=== PATIENT | female | born 1995 | race American Indian/Alaskan Native ===

== ENCOUNTER 2019-04-19 14:42 | Outpatient (CLI) | payer OTHER ==
[2019-04-19 16:55] LABS: Bacteria,Urine 1+ /HPF (Negative); Bilirubin,Urine NEG (Negative); Blood,Urine NEG (Negative); Color,Urine Yellow (Yellow); Hyaline Casts,Urine 2 /LPF; Mucus,Urine 3+ /HPF; Urobilinogen,Urine < 2.0 mg/dL (<2.0)
[2019-04-19 19:20] VITALS: BP 117/75
--- NOTE | 2019-04-20 12:17 | Ultrasound Report ---
Limited OB Ultrasound HISTORY: labor. TECHNIQUE: Grayscale and color Doppler imaging performed. COMPARISON: None FINDINGS: There is a single viable intrauterine gestation which is cephalic in presentation. CINTHIA 15 c m. Heart rate is 138 bpm. No acute placental abnormality identified and the placenta is positioned an teriorly. IMPRESSION: Unremarkable limited examination. Signer Name: Maxime Hernandez MD Signed: 04/20/2019 12:13 PM Workstation Name: [id number]
--- NOTE | 2019-04-21 16:37 | Ultrasound Report ---
Biophysical profile INDICATION: with vaginal bleeding COMPARISON: None FINDINGS: Study dated 04/19/2019 is presented for interpretation on 04/21/2019 breathing movement: 2/2 movement: 2/2 posture and tone: 2/2 Qualitative amniotic fluid volume: 2/2 IMPRESSION: Total score for biophysical profile is 8/8. heart rate is 138 bpm Signer Name: Jose Armando MD Signed: 04/21/2019 4:32 PM Workstation Name: [id number]
== END 2019-04-19 20:05 | disposition home or self-care (01) ==
LOC: TRG 14:42
PROVIDERS: ATTEND Obstetrics & Gynecology
DX: O26.852 Spotting complicating pregnancy, second trimester (principal); Z3A.27 27 weeks gestation of pregnancy
CPT/HCPCS: 76815; 76819; 81001

== ENCOUNTER 2019-07-10 05:46 | Inpatient (IN) | payer OTHER ==
[2019-07-10] MEDS ORDERED: LACTATED RINGERS 1,000 ML ONE (08:49)
[2019-07-10] MEDS ORDERED: FAMOTIDINE 20 MG/2 ML INJ IV ONE (08:59)
[2019-07-10] MEDS ORDERED: METOCLOPRAMIDE 10 MG/2 ML INJ IV ONE (08:59)
[2019-07-10] MEDS ORDERED: BICITRA ORAL LIQD 30ML PO ONE (08:59)
[2019-07-10] MEDS: LACTATED RINGERS 1,000 ML IV SCH ×2 (09:00→09:51)
[2019-07-10] MEDS ORDERED: OXYTOCIN 20 UNIT/1000ML DRIP 20 UNITS/1,000 ML BAG IV SCH ×2 (09:00→13:00)
[2019-07-10] MEDS ORDERED: ceFAZolin/Water 2 GM/20 ML 2 GM/20 ML SYRINGE IV NR (09:00)
[2019-07-10] MEDS ORDERED: PROMETHAZINE 25 MG TAB PO PRN (09:19)
[2019-07-10] MEDS ORDERED: NALOXONE 0.4 MG/1 ML INJ IV PRN ×2 (09:19→12:24)
[2019-07-10] MEDS ORDERED: ONDANSETRON 4 MG/2 ML INJ IV PRN ×2 (09:19→12:29)
[2019-07-10] MEDS ORDERED: HYDROmorphone 1 MG/1 ML INJ IV PRN ×2 (09:19)
[2019-07-10] MEDS ORDERED: PROMETHAZINE 25 MG RECT SUPP PR PRN (09:19)
--- NOTE | 2019-07-10 09:19 | Anesthesia Consultation ---
Anesthesia Consult and Med Hx Date of service: 07/10/19 - Airway Anesthetic Teeth Evaluation: Good ROM Head & Neck: Adequate Mental/Hyoid Distance: Adequate Mallampati Class: Class II Intubation Access Assessment: Good - Pulmonary Exam CTA: Yes - Cardiac Exam Cardiac Exam: RRR - Pre-Operative Health Status ASA Pre-Surgery Classification: ASA1 Proposed Anesthetic Plan: Spinal - Pulmonary Hx Asthma: No - Cardiovascular System Hx Hypertension: No - Central Nervous System Hx Seizures: No Hx Psychiatric Problems: No - Endocrine Hx Renal Disease: No Hx Hypothyroidism: No Hx Hyperthyroidism: No - Hematic Hx Anemia: No Hx Sickle Cell Disease: No - Other Systems Hx Alcohol Use: No
--- NOTE | 2019-07-10 09:19 | Anesthesia Day of Surgery ---
Anesthesia Day of Surgery - Day of Surgery Patient Examined: Yes Patient H&P Reviewed: Yes Patient is NPO: Yes
--- NOTE | 2019-07-10 09:25 | History and Physical Report ---
History of Present Illness Date of examination: 07/10/19 Date of admission: 07/10/19 05:46 History of present illness: PT is a at 39.1 weeks with h/o 2 prior LTCS who is here for repeat LTCS. PT also desires sterilization. Uncomplicated except for noncompliance. 3 OB visits during the . Past History Past Medical History: no pertinent history Past Surgical History: section (x 2) Social history: no significant social history - Obstetrical History Expected Date of Delivery: 07/16/19 Actual Gestation: 39 Week(s) 1 Day(s) : 3 Para: 2 Hx # Term Pregnancies: 2 Number of Living Children: 2 Medications and Allergies Allergies Allergy/AdvReac Type Severity Reaction Status Date / Time No Known Allergies Allergy Unverified 04/19/19 16:23 Home Medications Medication Instructions Recorded Confirmed Last Taken Type Multivitamin Tablet 1 tab PO DAILY 07/10/19 07/10/19 07/09/19 10:00 History Active Meds: Active Medications Oxytocin/Sodium Chloride (Pitocin/Ns 20 Unit/1000ml Drip) 20 units in 1,000 mls @ 0 mls/hr IV TITR PAVAN Lactated Ringer's (Lactated Ringers) 1,000 mls @ 2,250 mls/hr IV PREOP PAVAN Stop: 07/11/19 09:27 Cefazolin Sodium (Ancef/Sterile Water 2 Gm/20 Ml) 2 gm in 20 mls @ 80 mls/hr IV PREOP NR; Protocol Stop: 07/10/19 23:00 Review of Systems All systems: negative - Vital Signs Vital signs: Vital Signs Pulse BP 70 126/78 07/10/19 09:12 07/10/19 09:12 Temp Pulse Resp BP Pulse Ox 70 126/78 07/10/19 09:12 07/10/19 09:12 - Physical Exam Abdomen: Positive: normal appearance, soft. Negative: tenderness Results All other labs normal. Assessment and Plan - Patient Problems (1) Hx of section Current Visit: Yes Status: Acute Plan to address problem: PT fully consented for her RLTCS/BTL. All questions answered. Risks, benefits, alternatives d/w pt. PT aware of the approximately 09/999 risk of BTL failure. Risk of regret evy with her age also d/w pt and she understands. Other BC options d/w pt and she still opts to proceed with BTL.
[2019-07-10 09:39] LABS: Basophils % (Auto) 0.2 % (0.0-1.8); Eosinophils # (Auto) 0.1 K/mm3 (0.0-0.4); Eosinophils % (Auto) 0.7 % (0.0-4.3); Hematocrit 32.9 % (30.3-42.9); Lymphocytes % (Auto) 27.8 % (13.4-35.0); Mean Corpuscular HGB Conc 33 % (30-34); Mean Corpuscular Volume 93 fl (79-97); Monocytes # (Auto) 0.7 K/mm3 (0.0-0.8); Monocytes % (Auto) 6.1 % (0.0-7.3); Platelet Count 249 K/mm3 (140-440); Red Blood Count 3.54 M/mm3 (3.65-5.03); Red Cell Distribution Width 12.9 % (13.2-15.2)
[2019-07-10] MEDS ORDERED: fentaNYL-BUPIV 2 MCG/ML-0.125% 200 MCG/100 ML BAG EPIDURAL SCH (10:00)
[2019-07-10] MEDS ORDERED: DEXMEDETOMIDINE 200 MCG/2 ML VIAL IV ONE (10:02)
[2019-07-10] MEDS ORDERED: ONDANSETRON 4 MG/2 ML INJ ONE (10:02)
[2019-07-10] MEDS ORDERED: SODIUM CHLORIDE 0.9% IRR 1,500 ML BOTTLE IR ONE (10:35)
[2019-07-10] MEDS ORDERED: WATER FOR IRRIG STERILE 1,500 ML BOTTLE IR ONE (10:35)
[2019-07-10] MEDS ORDERED: PHENYLEPHRINE/NS 1,000 MCG/10 ML SYRINGE (OR USE) IV ONE (10:37)
[2019-07-10] MEDS ORDERED: KETOROLAC 30 MG/1 ML INJ ONE (11:13)
[2019-07-10] MEDS ORDERED: HYDROmorphone 1 MG/1 ML INJ ONE (11:13)
[2019-07-10] MEDS ORDERED: fentaNYL 100 MCG/2 ML INJ ONE (11:29)
[2019-07-10] MEDS ORDERED: LANOLIN/ZINC/DIMETHICONE (LANSINOH) 7 GM TP PRN (12:24)
[2019-07-10] MEDS ORDERED: WITCH HAZEL/ GLYCERIN PAD TP PRN (12:24)
[2019-07-10] MEDS ORDERED: SENNOSIDES 8.6 MG TAB PO PRN (12:29)
[2019-07-10] MEDS ORDERED: SIMETHICONE 80 MG CHEW TAB PO PRN (12:29)
[2019-07-10] MEDS ORDERED: HYDROCORTISONE 25 MG RECTAL SUPP PR PRN (12:29)
[2019-07-10] MEDS ORDERED: MAGNESIUM HYDROXIDE (MOM) ORAL LIQD UDC PO PRN (12:29)
--- NOTE | 2019-07-10 12:42 | Procedure Note ---
OB Delivery Note - Section Preop diagnosis: repeat , desires sterilization Postop diagnosis: same section procedure: repeat low transverse, bilateral tubal ligation Disposition: PACU Complications: none Narrative: This patient is a 24-year-old at 39 weeks and 1 day with a history of 2 prior C-sections who is here today for her scheduled repeat low transverse C- section. Patient also desires sterilization and is for bilateral tubal ligation as well Surgeon: Dr. Peterson Estimated blood loss 800 mL Findings: patient had a viable female with Apgars of 6 and 8. Baby was vertex. Clear fluid was noted. Grossly normal uterus tubes and ovaries. No significant intra-abdominal adhesions but patient had moderate subcutaneous scarring in that tissue. Procedure: Patient was taken to the operating room and prepped and draped in usual fashion. Patient had an old keloid Pfannenstiel incision which was excised out. Incision then carried down to the underlying fascia. Fascia was incised and the incision was extended bilaterally. Rectus fascia dissected off the rectus muscle both superiorly and inferiorly. Peritoneum was carefully identified and entered safely. Peritoneal incision extended superiorly and inferiorly with good visualization of the bladder. Bladder blade was then placed. The uterine incision was made and the incision was extended b ilaterally. The baby was then delivered in the usual fashion. Delayed cord clamping and cutting was done. Baby then handed off to the team. The uterus was then exteriorized and cleared of all clots and debris. Uterine incision closed with 0 Vicryl in a running locked fashion followed by second imbricating layer of 0 Vicryl. Good hemostasis was noted. Urine was clear. Attention was then turned to the fallopian tubes which were suture ligated in the usual fashion on both sides with 0 chromic 2 on each side. Good hemostasis noted afterwards on both sides. Uterus tubes and ovaries then returned to the abdominal cavity. Gutters were cleared of all clots and debris. Good hemostasis was noted throughout including at the sites of the tubal ligations. Pelvis is well irrigated. Interceed placed over the uterine incision and over the lower uterine segment in the midline. Peritoneum was then reapproximated with 2-0 Vicryl. The rectus fascia was then reapproximated using 0 Vicryl in a running fashion. Subcutaneous tissues were irrigated and reapproximated 2-0 Vicryl in running fashion. Skin was closed with 4-0 Vicryl in a subcuticular fashion followed by Dermabond. Patient tolerated the procedure well. All instrument counts are correct. Patient taken to the recovery room in stable condition. - Infant A at 1 minute: 6 at 5 minutes: 8 Infant Gender: Female
--- NOTE | 2019-07-10 12:59 | Post Anesthesia Evaluation ---
- Post Anesthesia Evaluation Patient Participated: Yes Airway Patent: Yes Stable Respiratory Function: Yes Nausea/Vomiting: No Temp > 96.8F: Yes Pain Manageable: Yes Adequeate Hydration: Yes Anesthesia Complications: No Block Receding Appropriately: Yes Patient on Ventilator: No
[2019-07-10] MEDS: KETOROLAC 30 MG/1 ML INJ IV PRN (14:02)
[2019-07-10] MEDS: D5W/LACTATED RINGERS 1,000 ML IV SCH (15:26)
[2019-07-11] MEDS: D5W/LACTATED RINGERS 1,000 ML IV SCH (02:43)
[2019-07-11] MEDS: KETOROLAC 30 MG/1 ML INJ IV PRN (02:47)
[2019-07-11 09:06] LABS: Hematocrit 31.6 % (30.3-42.9); Hemoglobin 10.3 gm/dl (10.1-14.3)
[2019-07-11] MEDS: PRENATAL VIT27-FE FUMARATE-FOLIC ACID VIT TAB PO SCH (09:12)
[2019-07-11] MEDS: oxyCODONE /ACETAMINOPHEN 5-325MG TAB PO PRN ×3 (09:12→21:51)
--- NOTE | 2019-07-11 11:35 | Progress Note ---
Assessment and Plan A: POD # 1 - stable P; Continue Post op care Subjective - Subjective Date of service: 07/11/19 Principal diagnosis: Repeat Patient reports: appetite normal [place]: doing well Objective - Vital Signs Latest vital signs: Vital Signs Temp Pulse Resp BP BP Pulse Ox 07/11/19 08:03 98.2 F 61 18 124/52 07/11/19 04:00 98.4 F 68 16 117/78 07/11/19 00:00 98.7 F 63 16 121/72 07/10/19 19:30 99.2 F 69 16 149/62 07/10/19 13:37 97.9 F 64 18 110/62 100 07/10/19 13:11 62 16 108/47 100 07/10/19 13:05 98.1 F 72 12 104/47 98 07/10/19 12:50 69 14 97/62 98 07/10/19 12:37 58 L 12 94/49 98 07/10/19 12:21 64 14 100/40 100 07/10/19 12:15 65 8 L 98/40 100 07/10/19 12:12 98 F 73 11 L 106/50 100 Intake and Output 07/10/19 07/11/19 07/11/19 22:59 06:59 14:59 Intake Total 1400 480 Output Total 700 2600 Balance -700 -1200 480 Intake: IV 1000 D5lr 1,000 ml @ 125 mls/ 1000 hr IV DIRECT PAVAN Rx#: [id number] Oral 400 480 Output: Urine 700 2600 Indwelling Catheter 700 2300 Uretheral (Lam) 300 Other: Total, Intake Amount 200 480 Total, Output Amount 700 300 - Exam Breasts: Present: deferred Cardiovascular: Present: Regular rate Lungs: Present: Clear to auscultation Abdomen: Present: soft Vulva: both: normal Uterus: Present: fundal height below umbilicus Extremities: Present: normal Deep Tendon Reflex Grade: Normal +2 Incision: Present: dressed
[2019-07-11] MEDS: IBUPROFEN 800 MG TAB PO PRN (20:26)
[2019-07-12] MEDS: oxyCODONE /ACETAMINOPHEN 5-325MG TAB PO PRN ×3 (06:38→20:15)
--- NOTE | 2019-07-12 09:41 | Progress Note ---
Assessment and Plan - Patient Problems (1) S/P repeat low transverse Current Visit: Yes Status: Acute Plan to address problem: Continue routine PP orders Increase Percocet to 2 tabs po q 6 hrs prn for pain Anticipate d/c home tomorrow F/U with office in 1 week after d/c (2) Anemia Current Visit: Yes Status: Acute Qualifiers: Anemia type: other cause Other causes of anemia: acute posthemorrhagic Qualified Code(s): D62 - Acute posthemorrhagic anemia Plan to address problem: Asymptomatic Ferrous sulfate 325mg po qd Increase iron rich foods into diet (3) tubal ligation planned Current Visit: Yes Status: Acute Subjective - Subjective Date of service: 07/12/19 Principal diagnosis: Repeat Interval history: See admission H & P; OB operative summary and PP progress notes Patient reports: appetite normal, voiding normally, flatus, bowel movement, pain poorly controlled (reports that pain meds are not holding her to next scheduled dose. Percocet increased to 2 tabs q 6 hrs prn.), ambulating normally Objective - Vital Signs Latest vital signs: Vital Signs Temp Pulse Resp BP BP Pulse Ox 07/12/19 00:18 98.2 F 76 20 141/81 96 07/11/19 16:23 98.8 F 79 18 99/64 Intake and Output 07/11/19 07/12/19 07/12/19 23:59 07:59 15:59 Intake Total 720 240 Balance 720 240 Intake: Oral 720 240 Other: Total, Intake Amount 240 240 # Voids Void 1 1 - Exam Breasts: Present: normal Cardiovascular: Present: Regular rate Lungs: Present: Normal air movement Abdomen: Present: tenderness Uterus: Present: firm, fundal height below umbilicus (U-2) Extremities: Present: edema ([place] ankles/feet) Deep Tendon Reflex Grade: Normal +2 Incision: Present: dressed (small amt of shadow dressing noted on right lower side of drsg.)
--- NOTE | 2019-07-12 09:47 | Discharge Summary ---
Providers - Providers Date of Admission: 07/10/19 05:46 Date of discharge: 07/13/19 (1200) Attending physician: CRISTAL ORTEGA MD Primary care physician: CRISTAL ORTEGA MD Hospitalization Reason for admission: section, IUP at term Delivery: Procedure: bilateral tubal ligation, repeat low transverse Episiotomy: none Laceration: none Incision: dry, intact Other procedures: tubal ligation complications: none Discharge diagnosis: other (S/P repeat C/S with tubal ligation) [place] baby: female Hospital course: See admission H & P; OB operative summary and PP progress notes Condition at discharge: Stable Disposition: DC-01 TO HOME OR SELFCARE - Discharge Diagnoses (1) S/P repeat low transverse Status: Acute (2) Anemia Status: Acute Qualifiers: Anemia type: other cause Other causes of anemia: acute posthemorrhagic Qualified Code(s): D62 - Acute posthemorrhagic anemia (3) tubal ligation planned Status: Acute Plan - Discharge Medications Prescriptions: Ferrous Sulfate [Feosol 325 MG tab] 325 mg PO QDAY 30 Days #30 tablet Ibuprofen [Motrin 600 MG tab] 600 mg PO Q6H PRN #30 tablet PRN Reason: Pain Acetaminophen/Codeine [Tylenol /Codeine # 3 tab] 1 tab PO Q4HR PRN #30 tablet PRN Reason: Pain - Provider Discharge Summary Activity: routine, no sex for 6 weeks, no heavy lifting 4 weeks, no strenuous exercise Diet: other (Iron rich diet) Instructions: routine Additional instructions: [] Smoking cessation referral if applicable(refer to patient education folder for contact #) [] Refer to [facility] Booklet Call your doctor immediately for: * Fever > 100.5 * Heavy vaginal bleeding ( >1 pad per hour) * Severe persistent headache * Shortness of breath * Reddened, hot, painful area to leg or breast * Drainage or odor from incision. * Keep incision clean and dry at all times and follow doctor's instructions regarding bathing/showering - Follow up plan Follow up: CRISTAL ORTEGA MD [Primary Care Provider] - 7 Days
[2019-07-12] MEDS: PRENATAL VIT27-FE FUMARATE-FOLIC ACID VIT TAB PO SCH (12:22)
[2019-07-12] MEDS: FERROUS SULFATE 325 MG TAB PO SCH (12:23)
[2019-07-13] MEDS: IBUPROFEN 800 MG TAB PO PRN (01:42)
[2019-07-13] MEDS: oxyCODONE /ACETAMINOPHEN 5-325MG TAB PO PRN ×2 (06:02→11:11)
[2019-07-13] MEDS: PRENATAL VIT27-FE FUMARATE-FOLIC ACID VIT TAB PO SCH (09:42)
[2019-07-13] MEDS: FERROUS SULFATE 325 MG TAB PO SCH (09:42)
[2019-07-13 14:16] VITALS: BP 127/84
== END 2019-07-13 16:00 | disposition home or self-care (01) | DRG 765 ==
LOC: APU 05:46 → OB 13:49
PROVIDERS: ADMIT Obstetrics & Gynecology; ATTEND Obstetrics & Gynecology
PROC: 10D00Z1 Extraction of Products of Conception, Low, Open Approach (ICD-10-PCS; principal; 2019-07-10)
PROC: 0UB70ZZ Excision of Bilateral Fallopian Tubes, Open Approach (ICD-10-PCS; 2019-07-10)
DX: O34.211 Maternal care for low transverse scar from previous cesarean delivery (principal); D62 Acute posthemorrhagic anemia; O99.02 Anemia complicating childbirth; Z3A.39 39 weeks gestation of pregnancy; Z37.0 Single live birth; Z30.2 Encounter for sterilization
CPT/HCPCS: 36415; 85014; 85018; 85025; 86850; 86900; 86901; 88302; G0378; A6250; C1765; J0690; J1170; J1885; J2370; J2405; J2590; J2765; J3010; J3490; J7120; J7121